=== PATIENT | female | born 1960 | race Caucasian/White ===

== ENCOUNTER → 2018-02-07 | Outpatient (CLI) | payer BC | LOC: M RAD 08:49 | DX: Z12.31 Encounter for screening mammogram for malignant neoplasm of breast (principal) | CPT/HCPCS: 77067 ==

== ENCOUNTER → 2020-08-02 | Outpatient (CLI) | payer BC ==
--- NOTE | 2020-08-02 11:08 | REPMRS ---
Patient History The patient states she had a clinical breast exam in 04/18 Family history of breast cancer at age 50 or over in maternal grandmother, unknown cancer at age 69 in father, breast cancer at age 83 in mother. Took hormonal contraceptives for 12 years. Digital Woman Screen Mammo: August 02, 2020 - Exam #: [id number] Bilateral CC and MLO view(s) were taken. Technologist: Sylvia Ling, Technologist Prior study comparison: February 07, 2018, bilateral digital mammo screening bilat, performed at [facility]. April 07, 2016, bilateral digital mammo screening bilat, performed at [facility]. February 22, 2015, bilateral digital mammo screening bilat, performed at [facility]. FINDINGS: There are scattered fibroglandular densities. The Volpara volumetric breast density category is:B. There has been no change in the appearance of the mammogram from the prior studies. There is a mild amount of scattered fibroglandular density which is fairly symmetric. There is no interval development of dominant mass, architectural distortion, or grouped microcalcification suggestive of malignancy. 3-D tomosynthesis shows no additional findings. Assessment: BI-RADS/ACR category 2 mammogram. Benign Findings. Recommendation Breast MRI of both breasts in 6 months. Routine screening mammogram in 1 year. This patient's [facility] Lifetime Breast Cancer RIsk is estimated at 20.7 %. Annual screening Breast MRI scanniing is recommended for patient's whose lifetime risk assessment is over 20%. This mammogram was interpreted with the aid of an FDA-approved computer-aided dectection system. Electronically Signed By: Dane Guevara MD 08/02/20 [id number]
== END ==
LOC: M WHC 10:11
PROVIDERS: ATTEND Internal Medicine
DX: Z12.31 Encounter for screening mammogram for malignant neoplasm of breast (principal); Z80.3 Family history of malignant neoplasm of breast

== ENCOUNTER → 2021-07-09 | Outpatient (CLI) | payer BC ==
--- NOTE | 2021-07-09 08:52 | REP ---
INDICATION: RUQ PAIN. COMPARISON: None. TECHNIQUE: Real-time images utilizing the external transducer. FINDINGS: The liver is significantly more echogenic than the cortex of the right kidney consistent with fatty infiltration. No masses are noted within the liver. The visualized pancreas appears normal as does the right kidney. The gallbladder appears free of stones with no thickening of the gallbladder wall or intra or extrahepatic duct dilatation present. The gallbladder wall measures 1.5 mm in thickness and the common duct measures 2 mm in diameter. IMPRESSION: Changes consistent with hepatic steatosis. 2. No abnormality of the gallbladder is identified. <Electronically signed by John Deleon > 07/09/21 0836
== END ==
LOC: M RAD 07:45
PROVIDERS: ATTEND Internal Medicine
DX: R10.11 Right upper quadrant pain (principal); K76.89 Other specified diseases of liver

== ENCOUNTER → 2021-10-29 | Outpatient (CLI) | payer BC | LOC: M WHC 09:31 | PROVIDERS: ATTEND Internal Medicine | DX: Z12.31 Encounter for screening mammogram for malignant neoplasm of breast (principal) ==

== ENCOUNTER → 2023-04-22 | Outpatient (CLI) | payer BC | LOC: M WHC 09:57 | PROVIDERS: ATTEND Internal Medicine | DX: Z12.31 Encounter for screening mammogram for malignant neoplasm of breast (principal) ==

== ENCOUNTER → 2024-03-14 | Outpatient (CLI) | payer BC | LOC: M WUC 12:59 | PROVIDERS: ATTEND Internal Medicine | DX: M17.11 Unilateral primary osteoarthritis, right knee (principal) ==

== ENCOUNTER → 2024-05-20 | Outpatient (CLI) | payer BC | LOC: M RAD 10:39 | PROVIDERS: ATTEND Physician Assistant | DX: M25.561 Pain in right knee (principal); M25.461 Effusion, right knee; R93.6 Abnormal findings on diagnostic imaging of limbs ==